=== PATIENT | female | born 1945 | race Caucasian/White ===

== ENCOUNTER → 2016-11-24 | Outpatient (CLI) | payer MEDICARE, MEDICAID ==
[~2016-11-24] MED LIST: ACETAMINOPHEN500 MG PO; ASPIRIN325 MG PO; CELEXA20 MG PO; COREG12.5 MG PO; FISH OIL1000 MG PO; GLUCOPHAGE XR500 M1 PO; K-TAB 10MEQ10 MEQ PO; LANTUS (IN100 UNIT/M SUB-Q; LISINOPRIL20 MG PO; PRAVACHOL80 MG PO; PRILOSEC20 M1 PO
== END ==
LOC: LFPA 10:16
DX: R00.2 Palpitations (principal); N39.0 Urinary tract infection, site not specified

== ENCOUNTER 2017-02-24 14:23 | Emergency (ER) | payer MEDICARE, MEDICAID ==
--- NOTE | ~2017-02-24 | ER ---
PATIENT'S NAME: TED BARRETT [facility] AGE: 71 Y [address] ROOM: [place] [address] LOCATION: ED ADMIT DATE: 02/24/2017 ER/Outpatient Report DISCHARGE DATE: 02/24/2017 FAMILY PHYSICIAN: Physician, Unknown ATTENDING PHYSICIAN: Dat Cheney CHIEF COMPLAINT: Confusion. HISTORY OF PRESENT ILLNESS: Ms Barrett arrives by private vehicle for evaluation of confusion. Symptoms started around 12:30 today. They are progressive in nature according to family. Family notes that she has been more confused. Did not know who she was and had fallen earlier today and that is what prompted them to bring her in. She is a known diabetic and states that she has been taking all of her medicines appropriately, but she did not eat lunch today. The patient is not able to give much history other than states she does not feel well. PAST MEDICAL HISTORY: Documented on the record and reviewed by me. SOCIAL HISTORY: Documented on the record and reviewed by me. MEDICATIONS: Documented on the record and reviewed by me. ALLERGIES: DOCUMENTED ON THE RECORD AND REVIEWED BY ME. REVIEW OF SYSTEMS: All systems were reviewed and negative except as noted in the HPI. PHYSICAL EXAMINATION: VITAL SIGNS: Obtained. The patient was found to be hypertensive in the two- teens over 100 with heart rates in the 50s, respiratory rate is 18 with O2 sats in the mid 90s. GENERAL: An age appropriate female, appears weak and shaky, recumbent on the exam table, in no apparent distress. NEUROLOGIC: The patient is awake. She is technically alert. She has slightly slowed mentation, is very purposeful. She is able to follow commands in all extremities. There is no asymmetry on her exam. No cranial nerve deficits appreciated. She has a very slight lisp, which is her baseline according to family. HEENT: Normocephalic, atraumatic. Eyes are PERRL. Oropharynx is clear. PATIENT'S NAME: TED BARRETT [facility] AGE: 71 Y [address] ROOM: [place], [place] [address] LOCATION: ED ADMIT DATE: 02/24/2017 ER/Outpatient Report DISCHARGE DATE: 02/24/2017 FAMILY PHYSICIAN: Physician, Unknown ATTENDING PHYSICIAN: Dat Cheney NECK: Supple. Trachea is midline. CHEST: Heart is regular rate and rhythm with no murmurs. LUNGS: Clear to auscultation bilateral. No rhonchi, wheezes, or rales. ABDOMEN: Soft, nontender, and nondistended. No rebound or guarding. BACK: Normal to inspection and palpation. EXTREMITIES: Warm and well perfused. No obvious deformities or edema. SKIN: Clean, dry, and intact. LABORATORY DATA AND X-RAYS: Head CT is unremarkable per Radiology review. Labs: Urinalysis with 500 leukocytes. Microscopic with pyuria but some epithelial cells, likely contaminated, culture is pending. CMS with no electrolyte abnormalities. Glucose is 47, Accu-Chek is 49. Renal function is appropriate. Cardiac markers are unremarkable. CBC with no appreciable abnormalities. INR is 1. EKG is sinus rhythm, ventricular rate of 60 with otherwise normal intervals and axis. No signs of dysrhythmia or ischemia. IMPRESSION: 1. Symptomatic hypoglycemia. 2. Accelerated hypertension. EMERGENCY DEPARTMENT COURSE: The patient was seen and evaluated as above. She was given D50 and had marked improvement in her mental status. She was remaining hypertensive. She was given nitroglycerin, and this did not effect any of her symptoms with improvement in her blood pressure. I do not think that she is having hypertensive emergency at this time. There is no evidence of end-organ dysfunction currently. Her mental status changes improved markedly with the administration of glucose. I reviewed her med list while talking with Dr. Sharif, credit representative of the patient's primary care clinic over the phone. We will initiate amlodipine here in the emergency department, and the patient is to follow up with Dr. Adams or Dr. Sharif on Saturday or sooner if needed. She should return immediately if worse. All questions were answered, and the patient was discharged to the care of her daughter in good condition. MD PAL VASQUEZ/flor /[id number] d: 02/24/17 2323 t: 03/05/17 1001, OUTPATIENT REPORT
[2017-02-24 14:40] LABS: BASOPHIL % 0.5 %; EOSINOPHIL # 0.1 K/uL (0.0-0.5); EOSINOPHIL % 1.5 %; HEMATOCRIT 34.8 % (33.0-46.0); HEMOGLOBIN 11.4 g/dL (10.0-15.0); IMMATURE GRANULOCYTE % 0.3 %; LYMPHOCYTE # 1.6 K/uL (0.8-4.0); LYMPHOCYTE % 27.3 %; MCH 29.8 pg (27.0-34.0); MCHC 32.8 gm/dL (32.0-36.5); MCV 91.1 fl (83.0-98.0); MONOCYTE # 0.6 K/uL (0.0-1.0); MONOCYTE % 10.3 %; NEUTROPHIL # (ANC) 3.6 K/uL (1.8-7.8); NEUTROPHIL % 60.1 %; NRBC % 0 /100WBC (0-0.00); PLATELET COUNT 324 K/uL (150-450); RBC 3.82 M/uL (3.50-5.50); RDW-CV 14.1 % (11.9-14.6)
[2017-02-24 14:50] LABS: INR - (THERAPEUTIC) 0.99 (0.92-1.07); PROTIME 10.4 SECONDS (9.8-11.4); PTT 30 SECONDS (25-32)
[2017-02-24 14:59] LABS: ALBUMIN 3.4 gm/dL (3.5-5.0); ALK PHOS 88 IU/L (33-138); ALT 15 IU/L (12-78); ANION GAP 11.9 (10.0-19.0); AST 20 IU/L (10-40); BLOOD UREA NITROGEN 8 mg/dL (6-24); CHLORIDE 102 mMol/L (96-110); CO2 26 mMol/L (22-32); CREATININE 0.5 mg/dL (0.5-1.1); SODIUM 136 mMol/L (135-145); TOTAL BILIRUBIN 0.3 mg/dL (0.0-1.5); TOTAL PROTEIN 8.2 g/dL (6.0-8.4)
[2017-02-24 15:00] LABS: POTASSIUM 3.9 mMol/L (3.7-5.1)
[2017-02-24 15:40] LABS: BILIRUBIN URINE NEGATIVE (NEGATIVE); BLOOD URINE NEGATIVE /UL (NEGATIVE); COLOR URINE COLORLESS (YELLOW); GLUCOSE URINE NEGATIVE (NEGATIVE); KETONE URINE NEGATIVE (NEGATIVE); LEUKOCYTES URINE 500 /UL (NEGATIVE); NITRITE URINE NEGATIVE (NEGATIVE); PROTEIN URINE NEGATIVE (NEGATIVE); SPEC GRAVITY URINE 1.005 (1.003-1.035); TURBIDITY URINE 1+ (CLEAR); UROBILINOGEN URINE NORMAL (NORMAL)
[2017-02-24 15:52] LABS: WBC URINE 20-50 #/HPF (NEGATIVE)
[2017-02-24 15:53] LABS: BACTERIA URINE MANY (NEGATIVE); RBC URINE 0-2 #/HPF (NEGATIVE); WBC CLUMPS URINE FEW (NEGATIVE)
== END 2017-02-24 16:42 | disposition disaster alternative care site (69) ==
LOC: GMED 14:23
PROVIDERS: Emergency Medicine
DX: E11.649 Type 2 diabetes mellitus with hypoglycemia without coma (principal); I10 Essential (primary) hypertension; Z79.84 Long term (current) use of oral hypoglycemic drugs; Z79.899 Other long term (current) drug therapy